=== PATIENT | male | born 1975 | race African-American/Black ===

== ENCOUNTER → 2018-11-29 | Emergency (ER) | payer OTHER ==
[2018-11-29 18:48] VITALS: BP 92/74; PULSE 121; TEMP 98; BMI 25.1
--- NOTE | 2018-11-29 18:50 | PDOC ---
Rapid Medical Evaluation Chief Complaint: Pain, Acute Time Seen by Provider: 11/29/18 18:45 Medical Evaluation: Allergies Allergy/AdvReac Type Severity Reaction Status Date / Time No Known Allergies Allergy Verified 11/29/18 18:42 11/29/18 18:45 I have performed a brief in-person evaluation of this patient. The patient presents with a chief complaint of: back pain s/p lumbar surgery 6 days ago. He got discharged on Wednesday but started developing cold sweats, subjective fever, worsening back pain 2 days ago, hence the visit. He has been doubling up on pain meds, sometimes tripling up without relief. Pertinent physical exam findings: Pt in a lot pain, standing, unable to sit due to pain, he says that he is unable to focus due to pain and dates might be off, he is being impatient, says that he is in pain and just needs to be seen. Bandage still in place in back. No surrounding erythema/streaking. Bandage not removed The patient will proceed to the ED for further evaluation. Discharge Disposition - Diagnosis Back pain Qualifiers: Back pain location: low back pain Chronicity: acute Back pain laterality: midline Sciatica presence: without sciatica Qualified Code(s): M54.5 - Low back pain - Referrals - Patient Instructions - Post Discharge Activity
== END | disposition left against medical advice (07) ==
LOC: JER 18:30
DX: M54.5 Low back pain (principal); Z98.890 Other specified postprocedural states
CPT/HCPCS: 99281-25